=== PATIENT | male | born 1950 | race African-American/Black ===

== ENCOUNTER 2016-08-17 16:18 | Inpatient (IN) | payer OTHER ==
[~2016-08-17] VITALS: Ht 180.3 cm; Wt 73.1 kg
[2016-08-17] MEDS ORDERED: SODIUM CHLORIDE 0.9% 1,000 ML IV ONE (20:21)
[2016-08-17] MEDS ORDERED: ACETAMINOPHEN 500MG TABLET PO ONE (20:30)
[2016-08-17 20:38] LABS: CLARITY URINE CLEAR (CLEAR); COLOR URINE YELLOW (YELLOW); GLUCOSE URINE TRACE (NEGATIVE); KETONES URINE NEGATIVE (NEGATIVE); LEUKOCYTE ESTERASE URINE NEGATIVE (NEGATIVE); NITRITE URINE NEGATIVE (NEGATIVE); OCCULT BLOOD URINE 2+ (NEGATIVE); PROTEIN URINE 4+ (NEGATIVE); SPECIFIC GRAVITY URINE 1.013 (1.005-1.030)
[2016-08-17 20:52] LABS: EOSINOPHILS % 3.4 % (0.0-5.0); HEMATOCRIT. 42.8 % (42.0-52.0); HEMOGLOBIN. 13.8 g/dL (14.0-18.0); LYMPHOCYTES % 23.2 % (20.0-50.0); MEAN CORPUSCULAR HEMOGLOBIN 27.9 pg (28.0-32.0); MEAN CORPUSCULAR VOLUME 86.3 fL (80.0-94.0); MEAN PLATELET VOLUME 9.2 fl (7.4-10.4); MONOCYTES % 8.4 % (2.0-8.0); PLATELET 224 x1000/uL (130-400); RED BLOOD CELL COUNT 4.96 mill/uL (4.7-6.1); RED CELL DISTRIBUTION WIDTH 15.9 % (11.6-14.6)
[2016-08-17 20:55] LABS: PROTHROMBIN TIME 10.6 sec
[2016-08-17 20:59] LABS: CARBON DIOXIDE 22 mEq/L (21-32); CHLORIDE 109 mEq/L (98-107)
[2016-08-17 21:02] LABS: TROPONIN I 0.14 ng/mL (0.00-0.04)
[2016-08-17] MEDS ORDERED: ASPIRIN 325MG TABLET PO ONE (21:30)
[2016-08-17 23:35] VITALS: BP 157/108
[2016-08-18 00:15] VITALS: BP 157/108
[2016-08-18] MEDS ORDERED: CLONIDINE 0.1MG TABLET PO PRN (01:00)
[2016-08-18] MEDS ORDERED: DEXTROSE 50% WATER 50ML SYRINGE IV PRN (01:00)
[2016-08-18] MEDS ORDERED: LISINOPRIL 10MG TABLET PO ONE (01:15)
[2016-08-18] MEDS: HYDROCODONE/ACETAMINOPHEN 5/325MG TABLET PO PRN ×2 (01:28→16:19)
[2016-08-18 04:00] VITALS: BP 151/91
[2016-08-18] MEDS: FUROSEMIDE 40MG/4ML VIAL IVP SCH ×2 (05:25→18:51)
[2016-08-18] MEDS: BLOOD SUGAR DIAGNOSTIC STRIP TEST SCH ×4 (05:34→20:15)
[2016-08-18] MEDS: INSULIN LISPRO 100 UNITS/ML SUBCUT SCH ×4 (05:34→20:36)
[2016-08-18 05:39] LABS: *AMPHETAMINES SCREEN URINE NEGATIVE (NEGATIVE); *BARBITURATES SCREEN URINE NEGATIVE (NEGATIVE); *BENZODIAZEPINES SCREEN URINE NEGATIVE (NEGATIVE); *COCAINE SCREEN URINE PRESUMTIVE POSITIVE (NEGATIVE); CANNABINOID URINE SCREEN NEGATIVE (NEGATIVE); METHADONE URINE SCREEN NEGATIVE (NEGATIVE); OPIATES URINE SCREEN NEGATIVE (NEGATIVE); PHENCYCLIDINE URINE SCREEN NEGATIVE (NEGATIVE)
[2016-08-18 07:15] LABS: HEMATOCRIT 42.5 % (42.0-52.0); HEMOGLOBIN 13.8 g/dL (14.0-18.0); PLATELET 224 x1000/uL (130-400); RED BLOOD CELL COUNT 4.94 mill/uL (4.7-6.1); RED CELL DISTRIBUTION WIDTH 15.9 % (11.6-14.6)
[2016-08-18 07:50] LABS: CHLORIDE 112 mEq/L (98-107)
[2016-08-18 08:00] VITALS: BP 163/107
[2016-08-18 08:03] LABS: CARBON DIOXIDE 24 mEq/L (21-32); CREATINE KINASE 104 IU/L (39-308); CREATINE KINASE MB FRACTION 2.2 ng/mL (0.5-3.6); TROPONIN I 0.15 ng/mL (0.00-0.04)
[2016-08-18] MEDS: ENOXAPARIN 40MG/0.4ML SYR SUBCUT SCH (08:08)
[2016-08-18] MEDS: LISINOPRIL 10MG TABLET PO SCH (08:08)
[2016-08-18] MEDS ORDERED: AMLODIPINE 2.5MG TABLET PO SCH (11:00)
[2016-08-18] MEDS ORDERED: HYDRALAZINE 20MG/ML VIAL IV PRN (11:00)
[2016-08-18] MEDS: LOSARTAN POTASSIUM 25 MG TABLET PO SCH ×2 (11:53→17:12)
[2016-08-18 12:00] VITALS: BP 157/108
[2016-08-18 13:42] LABS: CREATINE KINASE MB FRACTION 2.1 ng/mL (0.5-3.6); TROPONIN I 0.12 ng/mL (0.00-0.04)
[2016-08-18] MEDS ORDERED: CLONIDINE 0.1MG TABLET PO NR (18:45)
[2016-08-18 20:00] VITALS: BP 143/103
[2016-08-18] MEDS: AMLODIPINE 10MG TABLET PO SCH (20:31)
[2016-08-19] VITALS (7 sets, daily range): BP systolic 132–156; BP diastolic 81–102
[2016-08-19 05:51] LABS: EOSINOPHILS % 4.1 % (0.0-5.0); HEMATOCRIT. 40.4 % (42.0-52.0); HEMOGLOBIN. 13.2 g/dL (14.0-18.0); LYMPHOCYTES % 20.5 % (20.0-50.0); MEAN CORPUSCULAR HEMOGLOBIN 28.1 pg (28.0-32.0); MEAN PLATELET VOLUME 9.5 fl (7.4-10.4); MONOCYTES % 7.5 % (2.0-8.0); NEUTROPHILS % 66.9 % (40.0-76.0); PLATELET 223 x1000/uL (130-400); RED CELL DISTRIBUTION WIDTH 15.8 % (11.6-14.6)
[2016-08-19] MEDS: INSULIN LISPRO 100 UNITS/ML SUBCUT SCH ×4 (06:07→20:47)
[2016-08-19] MEDS: BLOOD SUGAR DIAGNOSTIC STRIP TEST SCH ×4 (06:07→21:00)
[2016-08-19] MEDS: FUROSEMIDE 40MG/4ML VIAL IVP SCH ×2 (06:13→17:34)
[2016-08-19 06:37] LABS: CARBON DIOXIDE 26 mEq/L (21-32); CHLORIDE 107 mEq/L (98-107); HDL CHOLESTEROL 61 mg/dL (40-59); LDL CHOLESTEROL 69 mg/dL (5-100)
[2016-08-19] MEDS ORDERED: POTASSIUM CHLORIDE 20MEQ TABLET SR PO NR (07:00)
[2016-08-19] MEDS: ASPIRIN 81MG EC TABLET PO SCH (08:42)
[2016-08-19] MEDS: LOSARTAN POTASSIUM 25 MG TABLET PO SCH ×2 (08:42→17:34)
[2016-08-19] MEDS: AMLODIPINE 10MG TABLET PO SCH ×2 (08:42→20:38)
[2016-08-19] MEDS: LISINOPRIL 10MG TABLET PO SCH (08:42)
[2016-08-19] MEDS: ENOXAPARIN 40MG/0.4ML SYR SUBCUT SCH (08:43)
[2016-08-19] MEDS ORDERED: MAGNESIUM 2 G PREMIX 50 ML IV NR (09:00)
[2016-08-19] MEDS ORDERED: CLONIDINE 0.1MG TABLET PO PRN (10:45)
[2016-08-19] MEDS: HYDRALAZINE HCL 50MG TABLET PO SCH ×2 (14:00→22:26)
[2016-08-20] VITALS: BP 123/75
[2016-08-20 04:00] VITALS: BP 129/91
[2016-08-20] MEDS: HYDRALAZINE HCL 50MG TABLET PO SCH ×3 (06:00→22:41)
[2016-08-20] MEDS: FUROSEMIDE 40MG/4ML VIAL IVP SCH ×2 (06:19→17:30)
[2016-08-20] MEDS: INSULIN LISPRO 100 UNITS/ML SUBCUT SCH ×4 (06:22→21:00)
[2016-08-20] MEDS: BLOOD SUGAR DIAGNOSTIC STRIP TEST SCH ×4 (06:22→21:14)
[2016-08-20 06:36] LABS: BASOPHILS % 0.8 % (0.0-2.0); EOSINOPHILS % 2.9 % (0.0-5.0); HEMATOCRIT. 42.5 % (42.0-52.0); LYMPHOCYTES % 21.2 % (20.0-50.0); MEAN CORPUSCULAR VOLUME 85.4 fL (80.0-94.0); MEAN PLATELET VOLUME 9.4 fl (7.4-10.4); MONOCYTES % 8.2 % (2.0-8.0); NEUTROPHILS % 66.9 % (40.0-76.0); PLATELET 242 x1000/uL (130-400); RED BLOOD CELL COUNT 4.98 mill/uL (4.7-6.1); RED CELL DISTRIBUTION WIDTH 16.1 % (11.6-14.6)
[2016-08-20 07:21] LABS: CARBON DIOXIDE 27 mEq/L (21-32); CHLORIDE 109 mEq/L (98-107)
[2016-08-20] MEDS: ENOXAPARIN 40MG/0.4ML SYR SUBCUT SCH (08:26)
[2016-08-20] MEDS: LOSARTAN POTASSIUM 25 MG TABLET PO SCH (08:26)
[2016-08-20] MEDS: LISINOPRIL 10MG TABLET PO SCH (08:26)
[2016-08-20] MEDS: ASPIRIN 81MG EC TABLET PO SCH (08:26)
[2016-08-20] MEDS: AMLODIPINE 10MG TABLET PO SCH ×2 (08:26→21:13)
[2016-08-20 08:50] VITALS: BP 145/101
[2016-08-20] MEDS: HYDROCODONE/ACETAMINOPHEN 5/325MG TABLET PO PRN (09:41)
[2016-08-20 12:30] VITALS: BP 134/81
[2016-08-20] MEDS ORDERED: POTASSIUM CHLORIDE 20MEQ/PACKET PO NR (13:00)
[2016-08-20 17:00] VITALS: BP 137/86
[2016-08-20 20:00] VITALS: BP 130/86
[2016-08-20] MEDS: LOSARTAN POTASSIUM 50 MG TABLET PO SCH (21:13)
[2016-08-21] VITALS: BP 130/91
[2016-08-21 04:00] VITALS: BP 121/71
[2016-08-21] MEDS: BLOOD SUGAR DIAGNOSTIC STRIP TEST SCH ×2 (06:32→12:29)
[2016-08-21] MEDS: INSULIN LISPRO 100 UNITS/ML SUBCUT SCH ×2 (06:32→12:15)
[2016-08-21] MEDS: FUROSEMIDE 40MG/4ML VIAL IVP SCH (06:33)
[2016-08-21] MEDS: HYDRALAZINE HCL 50MG TABLET PO SCH (06:33)
[2016-08-21 08:00] VITALS: BP 126/85
[2016-08-21] MEDS: AMLODIPINE 10MG TABLET PO SCH (09:00)
[2016-08-21] MEDS: LOSARTAN POTASSIUM 50 MG TABLET PO SCH (09:00)
[2016-08-21] MEDS: ASPIRIN 81MG EC TABLET PO SCH (09:01)
[2016-08-21] MEDS: LISINOPRIL 10MG TABLET PO SCH (09:01)
[2016-08-21] MEDS: ENOXAPARIN 40MG/0.4ML SYR SUBCUT SCH (09:04)
[2016-08-21 12:00] VITALS: BP 136/81
[2016-08-21 13:22] VITALS: BP 136/81
== END 2016-08-21 14:30 | disposition home or self-care (01) | DRG 291 ==
LOC: ER 20:37 → 5WST 22:15 → EDBEDREQ 22:16 → ENRESERV 22:23 → CANRESERV 22:34 → ENRESERV 22:34 → CANRESERV 23:02 → ENRESERV 23:02
PROVIDERS: ADMIT Internal Medicine; ATTEND Internal Medicine
DX: I11.0 Hypertensive heart disease with heart failure (principal); E43 Unspecified severe protein-calorie malnutrition; I50.43 Acute on chronic combined systolic (congestive) and diastolic (congestive) heart failure; I42.0 Dilated cardiomyopathy; E11.9 Type 2 diabetes mellitus without complications; M25.551 Pain in right hip; I42.7 Cardiomyopathy due to drug and external agent; F17.210 Nicotine dependence, cigarettes, uncomplicated; F14.10 Cocaine abuse, uncomplicated; T40.5X5A Adverse effect of cocaine, initial encounter; Z59.0 Homelessness; Z72.89 Other problems related to lifestyle; Z79.82 Long term (current) use of aspirin; Z79.899 Other long term (current) drug therapy; Z68.22 Body mass index [BMI] 22.0-22.9, adult; W18.30XA Fall on same level, unspecified, initial encounter; Y93.89 Activity, other specified; Y92.89 Other specified places as the place of occurrence of the external cause; Y99.8 Other external cause status; Z71.51 Drug abuse counseling and surveillance of drug abuser
CPT/HCPCS: 36415; 71010; 73522; 80048; 80053; 80061; 80305; 81001; 82550; 82553; 82962; 83735; 83880; 84484; 85025; 85027; 85610; 85730; 93005; 93306; 93970; 97162; 99285; J1650; J1815; J1940; J3475; J7030; J7050

== ENCOUNTER 2016-11-06 11:48 | Inpatient (IN) | payer OTHER ==
[~2016-11-06] VITALS: Ht 180.3 cm; Wt 79.8 kg
[2016-11-06] MEDS ORDERED: FUROSEMIDE 40MG/4ML VIAL IV STA (14:47)
[2016-11-06] MEDS ORDERED: ASPIRIN 81MG TABLET PO STA (14:47)
[2016-11-06 15:34] LABS: INR 1.1; PARTIAL THROMBOPLASTIN TIME 28.5 sec (23.4-31.0)
[2016-11-06 15:36] LABS: BASOPHILS % 0.8 % (0.0-2.0); EOSINOPHILS % 2.5 % (0.0-5.0); HEMOGLOBIN. 13.8 g/dL (14.0-18.0); LYMPHOCYTES % 23.1 % (20.0-50.0); MEAN CORPUSCULAR HEMOGLOBIN 27.8 pg (28.0-32.0); MEAN CORPUSCULAR VOLUME 84.9 fL (80.0-94.0); MEAN PLATELET VOLUME 9.1 fl (7.4-10.4); MONOCYTES % 8.4 % (2.0-8.0); NEUTROPHILS % 65.2 % (40.0-76.0); PLATELET 216 x1000/uL (130-400); RED BLOOD CELL COUNT 4.95 mill/uL (4.7-6.1)
[2016-11-06 15:41] LABS: CARBON DIOXIDE 23 mEq/L (21-32); CHLORIDE 110 mEq/L (98-107); CREATINE KINASE 237 IU/L (39-308)
[2016-11-06 15:43] LABS: TROPONIN I 0.21 ng/mL (0.00-0.04)
[2016-11-06] MEDS ORDERED: ACETAMINOPHEN 650MG SUPP PR PRN (17:45)
[2016-11-06] MEDS ORDERED: NA PHOS,M-B/NA PHOS,DI-BA ENEMA 118ML PR PRN (17:45)
[2016-11-06] MEDS ORDERED: MORPHINE SULFATE 4 MG/ML CPJ (NOT FOR IM USE) IV PRN (17:45)
[2016-11-06] MEDS ORDERED: IPRATROPIUM/ALBUTEROL 0.5-3(2.5)MG/3ML NEB INH PRN (17:45)
[2016-11-06] MEDS ORDERED: ACETAMINOPHEN 650MG/20.3ML UDC GT PRN (17:45)
[2016-11-06] MEDS ORDERED: GUAIFENESIN 200MG/10ML SUGAR FREE UDC PO PRN (17:45)
[2016-11-06] MEDS ORDERED: DIPHENHYDRAMINE 50MG/ML VIAL IV PRN (17:45)
[2016-11-06] MEDS ORDERED: MAGNESIUM/ALUMINUM HYDROXIDE/SIMETHICONE 30ML UDC PO PRN (17:45)
[2016-11-06] MEDS ORDERED: CLONIDINE 0.1MG TABLET PO PRN (17:45)
[2016-11-06] MEDS ORDERED: HYDROCODONE/ACETAMINOPHEN 5/325MG TABLET PO PRN (17:45)
[2016-11-06] MEDS ORDERED: DOCUSATE SODIUM 100MG CAPSULE PO PRN (17:45)
[2016-11-06] MEDS ORDERED: ACETAMINOPHEN 325MG TABLET PO PRN (17:45)
[2016-11-06] MEDS ORDERED: ONDANSETRON HCL 4MG/2ML VIAL IV PRN (17:45)
[2016-11-06 20:35] LABS: CLARITY URINE CLEAR (CLEAR); COLOR URINE YELLOW (YELLOW); GLUCOSE URINE NEGATIVE (NEGATIVE); KETONES URINE NEGATIVE (NEGATIVE); LEUKOCYTE ESTERASE URINE NEGATIVE (NEGATIVE); NITRITE URINE NEGATIVE (NEGATIVE); OCCULT BLOOD URINE TRACE (NEGATIVE); PH URINE 5.5 (4.5-8.0); PROTEIN URINE 2+ (NEGATIVE); SPECIFIC GRAVITY URINE 1.009 (1.005-1.030); UROBILINOGEN URINE 0.2 E.U./dL (0.2-1.0)
[2016-11-06 20:48] LABS: *AMPHETAMINES SCREEN URINE NEGATIVE (NEGATIVE); *BARBITURATES SCREEN URINE NEGATIVE (NEGATIVE); *BENZODIAZEPINES SCREEN URINE NEGATIVE (NEGATIVE); *COCAINE SCREEN URINE PRESUMTIVE POSITIVE (NEGATIVE); CANNABINOID URINE SCREEN NEGATIVE (NEGATIVE); METHADONE URINE SCREEN NEGATIVE (NEGATIVE); OPIATES URINE SCREEN NEGATIVE (NEGATIVE); PHENCYCLIDINE URINE SCREEN NEGATIVE (NEGATIVE)
[2016-11-06] MEDS ORDERED: MVI, ADULT NO.1 10 ML, FOLIC ACID 1 MG, THIAMINE HCL 100 MG in SODIUM CHLORIDE 0.9% 1,0... IV NR ×4 (23:30)
[2016-11-06] MEDS: ENOXAPARIN 40MG/0.4ML SYR SUBCUT SCH (23:49)
[2016-11-06] MEDS: METHYLPREDNISOLONE SOD SUCC 125 MG/2 ML VIAL IV SCH (23:49)
[2016-11-06] MEDS: SODIUM CHLORIDE 0.9% INJ 3ML FLUSH IVF SCH (23:49)
[2016-11-07 00:40] VITALS: BP 177/120
[2016-11-07] MEDS: SODIUM CHLORIDE 0.9% INJ 3ML FLUSH IVF SCH ×3 (05:59→21:05)
[2016-11-07] MEDS: METHYLPREDNISOLONE SOD SUCC 125 MG/2 ML VIAL IV SCH ×4 (05:59→23:33)
[2016-11-07] MEDS: BLOOD SUGAR DIAGNOSTIC STRIP TEST SCH ×4 (07:12→20:43)
[2016-11-07] MEDS: INSULIN LISPRO 100 UNITS/ML SUBCUT SCH ×4 (07:12→21:06)
[2016-11-07] MEDS ORDERED: DEXTROSE 50% WATER 50ML SYRINGE IV PRN (07:15)
[2016-11-07 07:46] VITALS: BP 161/91
[2016-11-07 07:53] LABS: BASOPHILS % 0.5 % (0.0-2.0); EOSINOPHILS % 0.2 % (0.0-5.0); HEMATOCRIT. 40.8 % (42.0-52.0); HEMOGLOBIN. 13.3 g/dL (14.0-18.0); LYMPHOCYTES % 9.8 % (20.0-50.0); MEAN CORPUSCULAR HEMOGLOBIN 27.8 pg (28.0-32.0); MEAN CORPUSCULAR VOLUME 85.1 fL (80.0-94.0); MEAN PLATELET VOLUME 9.5 fl (7.4-10.4); NEUTROPHILS % 87.5 % (40.0-76.0); PLATELET 214 x1000/uL (130-400); RED BLOOD CELL COUNT 4.79 mill/uL (4.7-6.1); RED CELL DISTRIBUTION WIDTH 15.7 % (11.6-14.6)
[2016-11-07 08:43] LABS: CARBON DIOXIDE 19 mEq/L (21-32); CHLORIDE 109 mEq/L (98-107); HDL CHOLESTEROL 57 mg/dL (40-59); LDL CHOLESTEROL 74 mg/dL (5-100)
[2016-11-07] MEDS: FUROSEMIDE 40MG/4ML VIAL IV SCH (09:23)
[2016-11-07 10:46] LABS: T4 FREE 1.25 ng/dL (0.76-1.46)
[2016-11-07] MEDS: LOSARTAN POTASSIUM 25 MG TABLET PO SCH (11:45)
[2016-11-07 12:00] VITALS: BP 169/88
[2016-11-07 13:59] LABS: HEPATITIS B SURFACE ANTIGEN NEGATIVE
[2016-11-07 14:27] LABS: HEPATITIS B CORE AB IGM NEGATIVE
[2016-11-07 14:28] LABS: HEPATITIS A AB IGM NEGATIVE (NEGATIVE)
[2016-11-07 16:06] VITALS: BP 152/93
[2016-11-07 18:51] LABS: CREATINE KINASE MB FRACTION 3.8 ng/mL (0.5-3.6); TROPONIN I 0.18 ng/mL (0.00-0.04)
[2016-11-07 20:00] VITALS: BP 140/84
[2016-11-07] MEDS: IPRATROPIUM/ALBUTEROL 0.5-3(2.5)MG/3ML NEB INH SCH (21:07)
[2016-11-07] MEDS: ENOXAPARIN 40MG/0.4ML SYR SUBCUT SCH (23:00)
[2016-11-08] VITALS: BP 150/91
[2016-11-08] MEDS: IPRATROPIUM/ALBUTEROL 0.5-3(2.5)MG/3ML NEB INH SCH ×3 (02:33→13:33)
[2016-11-08 02:39] LABS: TROPONIN I 0.15 ng/mL (0.00-0.04)
[2016-11-08 02:40] LABS: CREATINE KINASE MB FRACTION 3.7 ng/mL (0.5-3.6)
[2016-11-08 04:00] VITALS: BP 153/91
[2016-11-08] MEDS: SODIUM CHLORIDE 0.9% INJ 3ML FLUSH IVF SCH ×2 (05:51→13:29)
[2016-11-08] MEDS: METHYLPREDNISOLONE SOD SUCC 125 MG/2 ML VIAL IV SCH ×3 (05:51→13:29)
[2016-11-08] MEDS: BLOOD SUGAR DIAGNOSTIC STRIP TEST SCH ×2 (06:48→11:32)
[2016-11-08] MEDS: INSULIN LISPRO 100 UNITS/ML SUBCUT SCH ×2 (06:48→13:29)
[2016-11-08 08:00] VITALS: BP 157/87
[2016-11-08] MEDS: FUROSEMIDE 40MG/4ML VIAL IV SCH (08:50)
[2016-11-08] MEDS: LOSARTAN POTASSIUM 25 MG TABLET PO SCH (08:50)
[2016-11-08] MEDS ORDERED: FURO-151 PO (08:53)
[2016-11-08] MEDS ORDERED: P50 PO (08:53)
[2016-11-08] MEDS ORDERED: LOSA25TA3 PO (08:53)
[2016-11-08] MEDS ORDERED: ASPIRIN 81MG TABLET PO SCH (09:00)
[2016-11-08 11:32] VITALS: BP 140/84
[2016-11-08] MEDS ORDERED: INSULIN LISPRO 100 UNITS/ML SUBCUT SCH (13:15)
[2016-11-08 13:54] VITALS: BP 140/84
== END 2016-11-08 16:05 | disposition home or self-care (01) | DRG 291 ==
LOC: ER 14:45 → EDBEDREQ 14:54 → 8WST 16:39 → EDBEDREQ 16:40 → ENRESERV 21:05 → CANRESERV 21:05 → ENRESERV 11-07 00:02
PROVIDERS: ADMIT Family Medicine; ATTEND Family Medicine
DX: I11.0 Hypertensive heart disease with heart failure (principal); J96.00 Acute respiratory failure, unspecified whether with hypoxia or hypercapnia; J84.9 Interstitial pulmonary disease, unspecified; J98.11 Atelectasis; I50.23 Acute on chronic systolic (congestive) heart failure; I42.9 Cardiomyopathy, unspecified; F17.210 Nicotine dependence, cigarettes, uncomplicated; J44.9 Chronic obstructive pulmonary disease, unspecified; E11.9 Type 2 diabetes mellitus without complications; E78.5 Hyperlipidemia, unspecified; N28.9 Disorder of kidney and ureter, unspecified; F14.10 Cocaine abuse, uncomplicated; F10.10 Alcohol abuse, uncomplicated; Z91.14 Patient's other noncompliance with medication regimen; Z59.0 Homelessness
CPT/HCPCS: 36415; 71010; 80053; 80061; 80305; 81001; 82550; 82553; 82962; 83036; 83605; 83690; 83880; 84439; 84443; 84484; 85025; 85379; 85610; 85730; 86705; 86709; 86803; 87040; 87340; 93005; 93970; 94640; 94664; 96374; 97162; 99285; 99406; J1650; J1815; J1940; J2930; J3411; J3490; J7030; J7620